=== PATIENT | female | born 1995 ===

== ENCOUNTER 2019-10-29 10:56 | Inpatient (IN) | payer BC ==
[~2019-10-29] VITALS: Ht 165.1 cm; Wt 81.4 kg
[2019-10-30] VITALS (58 sets, daily range): BP systolic 98–162; BP diastolic 54–93; PULSE 63–151; TEMP 97.9–98.8
[2019-10-30] MEDS ORDERED: ASPIRIN 81M81 MG/TA2 PO (06:45)
[2019-10-30] MEDS ORDERED: ZOFRAN 4MG T4 MG/TAB PO (06:46)
[2019-10-30] MEDS ORDERED: PRENATAL TABLET PO (06:46)
--- NOTE | 2019-10-30 07:15 | NUR ---
Pt presents ambulatory to unit with spouse for induction of labor. Pt denies contractions, leaking of fluid, vaginal bleeding, and reports good movement. Pt changed into gown, EFM explained and placed. Contractions noted on monitor, pt reports she does not feel them. Consents discussed and signed. Pt oriented to room, questions invited and answered.
[2019-10-30 08:07] LABS: BASO % 0.3 % (0.0-2.0); EOS # 0.1 (0.0-0.7); EOS % 0.6 % (0-4.0); GRAN # 9.8 (1.4-6.5); HEMATOCRIT 38.1 % (37.0-47.0); HEMOGLOBIN 12.8 g/dl (12.5-16.0); LYMPH # 1.9 (1.2-3.4); LYMPH % 14.9 % (20.0-51.0); MEAN CELL VOLUME 89 fl (80.0-100.0); MEAN CORPUSCULAR HEMOGLOBIN 30 pg (27.0-31.0); MEAN CORPUSCULAR HGB CONC 34 g/dl (33.0-37.0); MEAN PLATELET VOLUME 10.3 fl (7.4-10.4); MONO # 0.9 (0.1-0.6); MONO % 6.7 % (1.7-9.3); PLATELET COUNT 201 K/mm3 (130-400); RED BLOOD COUNT 4.26 M/mm3 (4.10-5.30); REDCELL DISTRIBUTION WIDTH-CV 13.2 % (11.5-14.5)
--- NOTE | 2019-10-30 08:15 | NUR ---
SVE /-2, unchanged from office. Pitocin started at 2mu/ml/hr per protocol.
--- NOTE | 2019-10-30 09:10 | NUR ---
Dr. Shah to pt bedside. Discussed plan of care with pt. SVE per provider /-. AROM, clear fluid noted.
--- NOTE | 2019-10-30 10:05 | NUR ---
0959 - Maternal position change to sitting up in bed, FHM tracing maternal heart rate.
--- NOTE | 2019-10-30 12:20 | NUR ---
Shahzad Wright, NUT TIGHTENER to pt bedside. Epidural discussed and consented. Pt positioned upright on side of bed. Test dose given at 1235. See anesthesia record. Pt repositioned WR, bed in low position. Pt tolerated well.
--- NOTE | 2019-10-30 14:02 | NUR ---
1300 - Late decels noted. Repositioned patient. 1310 - SVE /-1. 1313 - Yu catheter inserted per sterile technique. 1315 - FHT down into 70's for 50 seconds, then returned to baseline of 125. Pitocin off. Oxygen started via mask at 10L/min. 1319 - Ephedrine given for BP of 97/56 1323 - Dr. Shah notified. See physician notification. 1325 - BP 114/53. No decels noted at this time.
--- NOTE | 2019-10-30 15:35 | NUR ---
Dr. Shah on unit, to patient bedside. SVE per provider . Plan to continue current plan of care.
--- NOTE | 2019-10-30 17:00 | NUR ---
SVE 4- with a lot of bloody show. Blood noted in urine in Yu tubing. Dr. Shah notified, see physician notification.
--- NOTE | 2019-10-30 21:00 | NUR ---
1814- Report from MISHEL Naqvi. Recent subtle lates noted on FHR strip. Pitocin infusing per protocol at 12mU. Patient repositioned WL with peanut ball. 1829- Recurrent subtle lates noted on FHR strip. RN to bedside. Patient repositioned LL. IV bolus infusing. O2 mask applied and at 10LPM. 1834- See Physician Notification. 1839- MIKHAIL Pena on unit. 1844- at bedside. SVE /+1. MD wants to continue to increase Pitocin. remains on L+D Unit. 1914- at bedside. SVE Complete/+1. Yu removed. Patient begins pushing with contractions. 1929- remains on L+D Unit. 1939- Epidural turned off per patient to increase pushing abilities. 1944- at bedside and pushing with patient. 1999- remains on L+D Unit. 2009- Epidural turned on per request from patient. 2019- at bedside and pushing with patient. 2044- Desean Gu RN at bedside. Labor room set up for delivery. 2050- of viable baby boy. Cord clamped and cut at the perineum by due to a tight nuchal cord. Meconium noted at delivery. Pitocin off. Cord blood obtained. care assumed by MISHEL Gu. 2054- Spontaneous delivery of placenta. Pitocin infusing at 333 ml/hr per protocol. Perineum repaired by . Pericare complete. Straight catheter performed by . 2099- PP Recovery started.
[2019-10-30] MEDS ORDERED: MOTRIN 800800 MG/TAB PO (21:20)
[2019-10-31] VITALS: BP 123/78; PULSE 91; TEMP 99.5
[2019-10-31 04:00] VITALS: BP 116/70; PULSE 90; TEMP 98.6
[2019-10-31 07:30] VITALS: BP 115/73; PULSE 101; TEMP 97.5
--- NOTE | 2019-10-31 10:55 | NUR ---
Visited the patient and congratulated the family on behalf of the hospital.
[2019-10-31 16:20] VITALS: BP 126/72; PULSE 76
[2019-10-31 21:15] VITALS: BP 123/71; PULSE 85; TEMP 98.5
[2019-11-01 08:00] VITALS: BP 119/65; PULSE 96; TEMP 97.9
== END 2019-11-01 13:30 | disposition home or self-care (01) | DRG 806 ==
LOC: LDR 10-30 07:01 → OB 10-30 10:55
PROVIDERS: ADMIT Obstetrics & Gynecology
PROC: 10E0XZZ Delivery of Products of Conception, External Approach (ICD-10-PCS; principal; 2019-10-30)
PROC: 0KQM0ZZ Repair Perineum Muscle, Open Approach (ICD-10-PCS; 2019-10-30)
PROC: 10907ZC Drainage of Amniotic Fluid, Therapeutic from Products of Conception, Via Natural or Artificial Opening (ICD-10-PCS; 2019-10-30)
PROC: 3E033VJ Introduction of Other Hormone into Peripheral Vein, Percutaneous Approach (ICD-10-PCS; 2019-10-30)
DX: O48.0 Post-term pregnancy (principal); O44.43 Low lying placenta NOS or without hemorrhage, third trimester; O99.62 Diseases of the digestive system complicating childbirth; K21.9 Gastro-esophageal reflux disease without esophagitis; G43.909 Migraine, unspecified, not intractable, without status migrainosus; O75.89 Other specified complications of labor and delivery; Z37.0 Single live birth; Z3A.40 40 weeks gestation of pregnancy; O76 Abnormality in fetal heart rate and rhythm complicating labor and delivery; O70.1 Second degree perineal laceration during delivery; Z3A.01 Less than 8 weeks gestation of pregnancy; Z23 Encounter for immunization
CPT/HCPCS: J2590; J2795; J7120

== ENCOUNTER → 2020-03-01 | Outpatient (CLI) | payer BC ==
[~2020-03-01] MED LIST: ASPIRIN 81M81 MG/TA2 PO; MOTRIN 800800 MG/TAB PO; PRENATAL TABLET PO; ZOFRAN 4MG T4 MG/TAB PO
--- NOTE | 2020-03-01 14:40 | NUR ---
Pt, Avelina Macdonald, presents for outpatient consult with 4 month old baby boy, Ted Macdonald. She has contacted this LC with desire to wean from nipple shield and concern about his weight as he has dropped to the 26th percentile for weight at his 4 month well baby exam. Ted was born on [birth year] by and weighed 8#2oz (3685 gms). He had latch trouble r/t inverted/flat nipples and was nursing with nipple shield by time of discharge. He seems to have done well with it, but pt now have everted nipples and would like not direct latch. Pt also states Ted will not take a bottle and she has to hold a pacifier in his mouth as he will not hold it in. Ted reportedly had weight gain WNL until between 2 months and 4 months his rate of gain decreased to an average of 0.4oz per day. Pt states Ted wants to nurse every 1-2 hours, day and [facility]. Also that about 2 or 3 months of age he had better sleeping habits at [facility], but that has changed so that he is up every couple hours. Pt presents with "engorged" breast, stating that Ted has not fed for two hours. The breasts are noticable full. Several attempts with varied positions and techniques were made to latch Ted without the nipple sheild. He is capable of latching but only for 1-2 min before he releases. Eventually he is allowed to nurse in the usual fashion so he can get the nourishment he needs. After bilateral Ted has a weight gain of 5oz (140 gms). He is content and has small amounts of spit up after. LC examines Bodies mouth and tongue movement. He is able to extend his tongue but when he arches the back of his tongue it creates a dimple in the anterior midline. Pt states he does have a lip tie, and LC is able to palpate a possible posterior frenulum. Pt verbalizes interest in having the oral tethers further evaluated, she was advised of local providers. POC: continue BF on demand, but if he is rooting within two hours of previous feed try distractions or offer pacifier to get him to two hours between feedings, as it is apparent her milk volume is not an issue. Discussed bottle nipple types that may work better for Ted. F/U: Advised pt to contact LC if she has Ted evaluated for tongue tie and the results of that evaluation. Also to have Ted weighed at five months of age to ensure he is maintaining expected weight gains. Pt verbalizes understanding, questions invited and answered.
== END ==
LOC: LAC 12:41
DX: Z39.1 Encounter for care and examination of lactating mother (principal)